=== PATIENT | female | born 1995 | race African-American/Black ===

== ENCOUNTER 2017-04-27 22:52 | Emergency (ER) | payer OTHER ==
[~2017-04-27] VITALS: Ht 172.7 cm; Wt 68.0 kg
[2017-04-27 23:06] VITALS: BP 138/87
[2017-04-27] MEDS ORDERED: BACI28.43 PO (23:10)
[2017-04-27] MEDS ORDERED: antibiotic PO (23:11)
== END 2017-04-28 00:18 | disposition home or self-care (01) ==
LOC: ED 23:59
DX: F32.0 Major depressive disorder, single episode, mild (principal)
CPT/HCPCS: 99283